=== PATIENT | male | born 1955 | race American Indian/Alaskan Native ===

== ENCOUNTER 2017-04-08 12:39 | Emergency (ER) | payer SELFPAY ==
[2017-04-08 12:47] VITALS: BP 126/71
[2017-04-08] MEDS ORDERED: ROCEPHIN IM ONE (13:23)
[2017-04-08] MEDS ORDERED: ZITHROMAX PO ONE (13:23)
[2017-04-08] MEDS ORDERED: XYLOCAINE 1% MPF 5 mL INFILTRATI ONE (13:23)
--- NOTE | 2017-04-08 13:30 | Emergency Department Report ---
ED Male HPI - General Chief complaint: Urogenital-Male Stated complaint: PENIS PAIN Time Seen by Provider: 04/08/17 13:21 Source: patient Mode of arrival: Ambulatory Limitations: No Limitations - History of Present Illness Initial comments: 61-year-old male past medical history none presents with complaint of penile discharge for 3 days. Patient endorses unprotected sex. Concerned he may have been exposed to an STD MD Complaint: penile discharge, dysuria Onset/Timin -: days(s) Location: penis Quality: burning Worsens with: urination discharge, dysuria - Related Data Sexually active: Yes Previous Rx's Medication Instructions Recorded Last Taken Type traMADol [Ultram] 50 mg PO Q6HR PRN #20 tablet 02/10/15 Unknown Rx Nitrofurantoin Monohyd/M-Cryst 100 mg PO BID #14 capsule 04/08/17 Unknown Rx [Macrobid 100 mg Capsule] Phenazopyridine [Pyridium] 100 mg PO TID #6 tab 04/08/17 Unknown Rx Allergies Allergy/AdvReac Type Severity Reaction Status Date / Time No Known Allergies Allergy Unverified 02/10/15 15:52 ED Review of Systems ROS: Stated complaint: PENIS PAIN Other details as noted in HPI Constitutional: denies: chills, fever Eyes: denies: eye pain, eye discharge, vision change ENT: denies: ear pain, throat pain Respiratory: denies: cough, shortness of breath, wheezing Cardiovascular: denies: chest pain, palpitations Endocrine: no symptoms reported Gastrointestinal: denies: abdominal pain, nausea, diarrhea Genitourinary: dysuria, frequency, discharge. denies: urgency Musculoskeletal: denies: back pain, joint swelling, arthralgia Skin: denies: rash, lesions Neurological: denies: headache, weakness, paresthesias Psychiatric: denies: anxiety, depression Hematological/Lymphatic: denies: easy bleeding, easy bruising ED Past Medical Hx - Past Medical History Previous Medical History?: No - Surgical History Past Surgical History?: No - Social History Smoking Status: Never Smoker Substance Use Type: None - Medications Home Medications: Home Medications Medication Instructions Recorded Confirmed Last Taken Type traMADol [Ultram] 50 mg PO Q6HR PRN #20 tablet 02/10/15 Unknown Rx Nitrofurantoin Monohyd/M-Cryst 100 mg PO BID #14 capsule 04/08/17 Unknown Rx [Macrobid 100 mg Capsule] Phenazopyridine [Pyridium] 100 mg PO TID #6 tab 04/08/17 Unknown Rx ED Physical Exam - General Limitations: No Limitations General appearance: alert, in no apparent distress - Head Head exam: Present: atraumatic, normocephalic - Eye Eye exam: Present: normal appearance, PERRL, EOMI - ENT ENT exam: Present: mucous membranes moist - Neck Neck exam: Present: normal inspection - Respiratory Respiratory exam: Present: normal lung sounds bilaterally. Absent: respiratory distress - Cardiovascular Cardiovascular Exam: Present: regular rate, normal rhythm. Absent: systolic murmur, diastolic murmur, rubs, gallop - GI/Abdominal GI/Abdominal exam: Present: soft, normal bowel sounds - Rectal Rectal exam: Present: deferred - Extremities Exam Extremities exam: Present: normal inspection - Back Exam Back exam: Present: normal inspection - Neurological Exam Neurological exam: Present: alert, oriented X3 - Psychiatric Psychiatric exam: Present: normal affect, normal mood - Skin Skin exam: Present: warm, dry, intact, normal color. Absent: rash ED Course Vital Signs 04/08/17 12:44 Temperature 98.3 F Pulse Rate 88 Respiratory 18 Rate Blood Pressure 126/71 O2 Sat by Pulse 97 Oximetry ED Medical Decision Making - Medical Decision Making A/P: Urethritis vs UTI in male 1-patient empirically treated with azithromycin and ceftriaxone 2-GC cultures sent, urine curlture sent 3-patient given follow-up with primary care Critical care attestation.: If time is entered above; I have spent that time in minutes in the direct care of this critically ill patient, excluding procedure time. ED Disposition Clinical Impression: Urethritis Disposition: DC-01 TO HOME OR SELFCARE Is pt being admited?: No Does the pt Need Aspirin: No Condition: Stable Instructions: Nonspecific Urethritis in Men (ED), Urinary Tract Infection in Men (ED), Dysuria (ED) Prescriptions: Nitrofurantoin Monohyd/M-Cryst [Macrobid 100 mg Capsule] 100 mg PO BID #14 capsule Phenazopyridine [Pyridium] 100 mg PO TID #6 tab Referrals: [facility] [Provider Group] - 3-5 Days [facility] [Outside] - 3-5 Days Forms: STI Treatment and Prevention Time of Disposition: 13:31
[2017-04-08 14:17] LABS: Bacteria,Urine 1+ /HPF (Negative); Bilirubin,Urine NEG (Negative); Blood,Urine SM (Negative); Color,Urine Yellow (Yellow); Mucus,Urine FEW /HPF; Nitrite,Urine NEG (Negative); Protein,Urine <15 mg/dL mg/dL (Negative)
[2017-04-08 14:23] LABS: WBC,Urine > 182.0 /HPF (0.0-6.0)
== END 2017-04-08 14:26 | disposition home or self-care (01) ==
LOC: ED 12:39
DX: N34.2 Other urethritis (principal)
CPT/HCPCS: 81001; 87086; 87591; 96372; 99283; J0696